=== PATIENT | female | born 1970 | race Caucasian/White ===

== ENCOUNTER → 2017-11-19 | Outpatient (CLI) | payer BC ==
[2005-09-03 04:26] VITALS: TEMP 98.8
== END ==
LOC: MC.RAD 14:32
DX: Z12.31 Encounter for screening mammogram for malignant neoplasm of breast (principal)

== ENCOUNTER → 2018-11-24 | Outpatient (CLI) | payer BC ==
[2005-09-03 04:26] VITALS: TEMP 98.8
== END ==
LOC: MC.RAD 10:56
DX: Z12.31 Encounter for screening mammogram for malignant neoplasm of breast (principal)

== ENCOUNTER → 2018-12-15 | Outpatient (CLI) | payer BC ==
[2005-09-03 04:26] VITALS: TEMP 98.8
== END ==
LOC: COL.RAD 12:28
DX: N92.1 Excessive and frequent menstruation with irregular cycle (principal)

== ENCOUNTER → 2019-11-28 | Outpatient (CLI) | payer BC ==
[2005-09-03 04:26] VITALS: TEMP 98.8
== END ==
LOC: MC.RAD 08:04
DX: Z12.31 Encounter for screening mammogram for malignant neoplasm of breast (principal)

== ENCOUNTER → 2020-11-30 | Outpatient (CLI) | payer BC ==
[2005-09-03 04:26] VITALS: TEMP 98.8
== END ==
LOC: MC.RAD 07:28
DX: Z12.31 Encounter for screening mammogram for malignant neoplasm of breast (principal)

== ENCOUNTER 2020-12-31 19:18 | Emergency (ER) | payer BC ==
[~2020-12-31] VITALS: Ht 162.6 cm; Wt 68.2 kg
[2020-12-31 19:26] VITALS: BP 171/89
[2020-12-31 20:40] VITALS: PULSE 71
== END 2020-12-31 20:40 | disposition home or self-care (01) ==
LOC: COL.ER 19:18
DX: R21 Rash and other nonspecific skin eruption (principal)
CPT/HCPCS: J1100

== ENCOUNTER → 2021-12-23 | Outpatient (CLI) | payer BC ==
[2005-09-03 04:26] VITALS: TEMP 98.8
== END ==
LOC: MC.RAD 12-19 08:15
DX: Z12.31 Encounter for screening mammogram for malignant neoplasm of breast (principal)

== ENCOUNTER 2023-01-01 07:27 | Day surgery (SDC) | payer BC ==
[~2023-01-01] VITALS: Ht 162.6 cm; Wt 73.0 kg
[2023-01-01 08:08] VITALS: BP 140/83; PULSE 65; TEMP 97.9
[2023-01-01] MEDS ORDERED: MULTI VITAMINS1 TAB PO (08:13)
[2023-01-01 09:45] VITALS: BP 133/67; PULSE 60; TEMP 97.7
[2023-01-01 10:00] VITALS: BP 138/81; PULSE 52
[2023-01-01 10:15] VITALS: BP 143/82; PULSE 52
[2023-01-01 10:30] VITALS: BP 139/84; PULSE 56
--- NOTE | 2023-01-01 11:00 | NUR ---
0945 RETURNS TO ROOM 2 PER CART. AWAKE, ALERT. RESP UNLABORED. AMBULATES TO RECLINER WITH STANDBY ASSIST. DENIES NAUSEA OR ABD PAIN. HERE. CALL LIGHT AT SIDE. 1000 TOLERATES PO WATER WITHOUT NAUSEA 1015 DOZING. 1030 AWAKE, ALERT. DISCHARGE INSTRUCTIONS REVIEWED. PATIENT VERBALIZES UNDERSTANDING. COPY PROVIDED IN DISCHARGE FOLDER. [address] GARDNER'S ARRIVAL 1055 DR. GARDNER HERE TO VISIT WITH PATIENT
== END 2023-01-01 11:02 | disposition home or self-care (01) ==
LOC: SDCO 07:27
DX: Z12.11 Encounter for screening for malignant neoplasm of colon (principal); K63.5 Polyp of colon
CPT/HCPCS: J2704; J7030; J7120

== ENCOUNTER → 2023-01-20 | Outpatient (CLI) | payer BC ==
[~2023-01-20] MED LIST: MULTI VITAMINS1 TAB PO
== END ==
LOC: MC.RAD 09:33
DX: Z12.31 Encounter for screening mammogram for malignant neoplasm of breast (principal)

== ENCOUNTER → 2024-02-04 | Outpatient (CLI) | payer BC ==
[2005-09-03 04:26] VITALS: BP 151/89; PULSE 87; TEMP 98.8
== END ==
LOC: MC.RAD 07:00
DX: Z12.31 Encounter for screening mammogram for malignant neoplasm of breast (principal)